=== PATIENT | male | born 2000 | race Caucasian/White ===

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

== ENCOUNTER 2025-01-20 09:24 | Emergency (ER) | payer BC, OTHER ==
[2025-01-20 09:31] VITALS: RESP 18; TEMP 97.9
--- NOTE | 2025-01-20 11:10 | ED ---
General Adult HPI - General Chief complaint: Animal Bite Stated complaint: Dog Bite R Hand Time Seen by Provider: 01/20/25 10:22 Source: patient, RN notes reviewed Mode of arrival: ambulatory Limitations: no limitations - History of Present Illness Initial comments: 24-year-old male presents to the emergency department for evaluation of right hand injury from a dog bite. Patient states that this occurred on . Patient notes that it was a neighborhood dog that his grandmother's house. They did contact the police and animal control. The dog is not registered at the house. Animal control is supposed to go to the house on Wednesday and attempt to quarantine the dog. The patient had a tetanus vaccine last year. - Related Data Previous Rx's Medication Instructions Recorded Amoxicillin 500 mg PO Q8H #30 capsule 11/04/15 predniSONE [Deltasone] 20 mg PO BID #10 tab 11/04/15 Amoxic-Pot Clav 875-125Mg 1 tab PO Q12HR 10 Days #20 tab 01/20/25 [Augmentin 875-125] Allergies Allergy/AdvReac Type Severity Reaction Status Date / Time No Known Allergies Allergy Verified 01/20/25 09:31 Review of Systems ROS Statement: Those systems with pertinent positive or pertinent negative responses have been documented in the HPI. ROS Other: All systems not noted in ROS Statement are negative. Past Medical History Past Medical History: No Reported History History of Any Multi-Drug Resistant Organisms: None Reported Past Surgical History: No Surgical Hx Reported Past Psychological History: No Psychological Hx Reported Smoking Status: Never smoker Past Alcohol Use History: None Reported, Occasional Past Drug Use History: Marijuana General Exam Limitations: no limitations General appearance: alert, in no apparent distress Head exam: Present: atraumatic, normocephalic, normal inspection Eye exam: Present: normal appearance, PERRL, EOMI. Absent: scleral icterus, conjunctival injection, periorbital swelling ENT exam: Present: normal exam, mucous membranes moist Respiratory exam: Present: normal lung sounds bilaterally. Absent: respiratory distress, wheezes, rales, rhonchi, stridor Cardiovascular Exam: Present: regular rate, normal rhythm, normal heart sounds. Absent: systolic murmur, diastolic murmur, rubs, gallop, clicks Extremities exam: Present: full ROM, normal capillary refill, other (Erythema on the palmar aspect of the hand). Absent: tenderness, pedal edema, joint swelling, calf tenderness Neurological exam: Present: alert, oriented X3 Psychiatric exam: Present: normal affect, normal mood Skin exam: Present: warm, dry, intact, other (Puncture wound presentPuncture wounds to the right hand anterior posterior, rash of the third digit and the second digit of the right hand, rash to the left hand). Absent: normal color Course Vital Signs 01/20/25 01/20/25 09:28 14:30 Temperature 97.9 F Pulse Rate 86 80 Respiratory 18 18 Rate Blood Pressure 151/80 128/74 O2 Sat by Pulse 99 99 Oximetry Medical Decision Making - Medical Decision Making Was pt. sent in by a medical professional or institution (, PA, [employer], urgent care, hospital, or shelter...) When possible be specific @ -No Did you speak to anyone other than the patient for history (EMS, parent, family, police, friend...)? What history was obtained from this source @ -No Did you review nursing and triage notes (agree or disagree)? Why? @ -I reviewed and agree with nursing and triage notes Were old charts reviewed (outside hosp., previous admission, EMS record, old EKG, old radiological studies, urgent care reports/EKG's, shelter records)? Report findings @ -No old charts were reviewed Differential Diagnosis (chest pain, altered mental status, abdominal pain women, abdominal pain men, vaginal bleeding, weakness, fever, dyspnea, syncope, headache, dizziness, GI bleed, back pain, seizure, CVA, palpatations, mental health, musculoskeletal)? @ -Differential Musculoskeletal Muscular strain, contusion, ligament sprain, fracture, arthritis, septic arthritis, bursitis, cellulitis, muscle spasm, nerve compression, DVT, arterial occlusion, herpes zoster, electrolyte abnormality, tumor.... This is not meant to be in all inclusive list EKG interpreted by me (3pts min.). @ -None X-rays interpreted by me (1pt min.). @ -None done CT interpreted by me (1pt min.). @ -None done U/S interpreted by me (1pt. min.). @ -None done What testing was considered but not performed or refused? (CT, X-rays, U/S, labs)? Why? @ -None What meds were considered but not given or refused? Why? @ -None Did you discuss the management of the patient with other professionals (professionals i.e. , PA, [employer], lab, RT, psych nurse, rn social work, glass cutter helper, teacher, life science technical officer, high risk case manager)? Give summary @ -No Was smoking cessation discussed for >3mins.? @ -No Was critical care preformed (if so, how long)? @ -No Were there social determinants of health that impacted care today? How? (Homelessness, low income, unemployed, alcoholism, drug addiction, transportation, low edu. Level, literacy, decrease access to med. care, detention, rehab)? @ -No Was there de-escalation of care discussed even if they declined (Discuss DNR or withdrawal of care, Hospice)? DNR status @ -No What co-morbidities impacted this encounter? (DM, HTN, Smoking, COPD, CAD, Cancer, CVA, ARF, Chemo, Hep., AIDS, mental health diagnosis, sleep apnea, morbid obesity)? @ -None Was patient admitted / discharged? Hospital course, mention meds given and route, prescriptions, significant lab abnormalities, going to OR and other pertinent info. @ -Discharge. Patient presented to emergency department for evaluation of puncture wounds to the hand from a dog bite. This occurred a few days ago.X- rays obtained revealing no acute abnormality. Puncture wounds are present to the hand which appear to be healing. I offered the patient rabies vaccine but discussed low likelihood. Patient would prefer to get the vaccines. He was given the initial Ig and vaccination. He is written a prescription for the remaining shots. He also was started on Augmentin and prescription was sent to the patient's pharmacy. He is understanding agreeable discharge plan. Patient stable at time of discharge. Case discussed with Dr. Rowley Undiagnosed new problem with uncertain prognosis? @ -No Drug Therapy requiring intensive monitoring for toxicity (Heparin, Nitro, Insulin, Cardizem)? @ -No Were any procedures done? @ -No Diagnosis/symptom? @ -Dog bite Acute, or Chronic, or Acute on Chronic? @ -Acute Uncomplicated (without systemic symptoms) or Complicated (systemic symptoms)? @ -Uncomplicated Side effects of treatment? @ -No Exacerbation, Progression, or Severe Exacerbation? @ -No Poses a threat to life or bodily function? How? (Chest pain, [place], [place], pneumonia, PE, COPD, DKA, ARF, appy, cholecystitis, CVA, Diverticulitis, Homicidal, Suicidal, threat to staff... and all critical care pts) @ -No Disposition Clinical Impression: Dog bite Disposition: HOME SELF-CARE Condition: Stable Instructions (If sedation given, give patient instructions): Animal Bite (ED) Additional Instructions: Please follow up with your primary care provider. Return to the emergency department for new or worsening symptoms. Prescriptions: Amoxic-Pot Clav 875-125Mg [Augmentin 875-125] 1 tab PO Q12HR 10 Days #20 tab Is patient prescribed a controlled substance at d/c from ED?: No Referrals: None,Stated [Primary Care Provider] - 1-2 days
--- NOTE | 2025-01-20 11:44 | XR ---
Right hand HISTORY: Pain following dog bite. COMPARISON: None TECHNIQUE: 3 views of the right hand were obtained. Findings: There is no fracture, dislocation, intraosseous or intra-articular abnormality. The soft tissues are normal. IMPRESSION: No significant abnormality seen. [facility], , 01/20/2025 11:42 AM
[2025-01-20] MEDS: RABIES IMM GLOB 300 UNIT/2 ML VIAL IM ONE (12:43)
[2025-01-20] MEDS: RABIES VACCINE (PCEC) 2.5 UNIT KIT IM ONE (12:45)
[2025-01-20] MEDS: AMOXIC-POT CLAV 875-125MG 1 EACH TAB PO STA (14:27)
[2025-01-20 14:30] VITALS: BP 128/74; PULSE 80
== END 2025-01-20 14:30 | disposition home or self-care (01) ==
LOC: EC 09:24
DX: S61.431A Puncture wound without foreign body of right hand, initial encounter (principal); W54.0XXA Bitten by dog, initial encounter
CPT/HCPCS: 90377; 90471; 90675; 96372; 99283

== ENCOUNTER 2025-03-02 07:53 | Emergency (ER) | payer BC ==
[2025-03-02] MEDS: LIDOCAINE 1% INJ 10MG/ML (20 ML MDV) SQ ONE (08:27)
--- NOTE | 2025-03-02 09:48 | ED ---
Skin/Abscess/FB HPI - General Chief complaint: Skin/Abscess/Foreign Body Stated complaint: Bump in L armpit Time Seen by Provider: 03/02/25 08:17 Source: patient Mode of arrival: ambulatory Limitations: no limitations - History of Present Illness Initial comments: 25-year-old male presents to the emergency department with a bump in his left armpit. Patient noticed it a few days ago and it has been getting increasingly larger in size. He had 1 in his right armpit which he states ruptured on its own. He has now developed a 1 in his left armpit. It is not currently draining at this time and so therefore very painful. He denies history of MRSA. No history of intravenous drug use. Denies fevers. No other alleviating, precipitating modifying factors - Related Data Previous Rx's Medication Instructions Recorded Amoxicillin 500 mg PO Q8H #30 capsule 11/04/15 predniSONE [Deltasone] 20 mg PO BID #10 tab 11/04/15 Amoxic-Pot Clav 875-125Mg 1 tab PO Q12HR 10 Days #20 tab 01/20/25 [Augmentin 875-125] Bacitracin Zinc Oint 1 applic TOPICAL BID #28 gm 03/02/25 Cephalexin [Keflex] 500 mg PO Q6HR #28 cap 03/02/25 Sulfamethox-Tmp 800-160Mg [Bactrim 2 tab PO BID #28 tab 03/02/25 DS 800-160 mg] Allergies Allergy/AdvReac Type Severity Reaction Status Date / Time No Known Allergies Allergy Verified 03/02/25 08:11 Review of Systems ROS Statement: Those systems with pertinent positive or pertinent negative responses have been documented in the HPI. ROS Other: All systems not noted in ROS Statement are negative. 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 Not ruptured at this time. Surrounding cellulitis) Course Vital Signs 03/02/25 03/02/25 08:07 09:56 Temperature 97.6 F 97.8 F Pulse Rate 74 72 Respiratory 20 18 Rate Blood Pressure 113/72 115/76 O2 Sat by Pulse 99 99 Oximetry Procedures - Incision & Drainage Consent Obtained: verbal consent Site: other (Axilla) Size (cm): 4 Anesthetic Used: lidocaine 1%, without epi Amount (mLs): 6 I&D Cleaning Method: Chloroprep Sterile Field Used?: Yes Scalpel Used: #11 Ultrasound used: No Needle Aspiration Performed?: No Irrigation Performed?: No I&D Drainage Obtained: Pus Loculation Noted: probing needed to break Insertion of drain: No Culture Obtained?: Yes Patient Tolerated Procedure: well Medical Decision Making - Medical Decision Making Was pt. sent in by a medical professional or institution (, [facility], VENDER, urgent care, hospital, or long-term...) When possible be specific @ -No Did you speak to anyone other than the patient for history (EMS, parent, family, police, friend...)? What history was obtained from this source @ -No Did you review nursing and triage notes (agree or disagree)? Why? @ -I reviewed and agree with nursing and triage notes Were old charts reviewed (outside hosp., previous admission, EMS record, old EKG, old radiological studies, urgent care reports/EKG's, long-term records)? Report findings @ -No old charts were reviewed Differential Diagnosis (chest pain, altered mental status, abdominal pain women, abdominal pain men, vaginal bleeding, weakness, fever, dyspnea, syncope, headache, dizziness, GI bleed, back pain, seizure, CVA, palpatations, mental health, musculoskeletal)? @ -MRSA, abscess, cellulitis, hidradenitis EKG interpreted by me (3pts min.). @ -Not done X-rays interpreted by me (1pt min.). @ -None done CT interpreted by me (1pt min.). @ -None done U/S interpreted by me (1pt. min.). @ -None done What testing was considered but not performed or refused? (CT, X-rays, U/S, labs)? Why? @ -None What meds were considered but not given or refused? Why? @ -None Did you discuss the management of the patient with other professionals (professionals i.e. Dr., PA, VENDER, lab, RT, psych nurse, social work supervisor, flue cleaner, teacher, correction officer reformatory, outpatient case manager)? Give summary @ -No Was smoking cessation discussed for >3mins.? @ -No Was critical care preformed (if so, how long)? @ -No Were there social determinants of health that impacted care today? How? (Homelessness, low income, unemployed, alcoholism, drug addiction, transportation, low edu. Level, literacy, decrease access to med. care, [facility], rehab)? @ -No Was there de-escalation of care discussed even if they declined (Discuss DNR or withdrawal of care, Hospice)? DNR status @ -No What co-morbidities impacted this encounter? (DM, HTN, Smoking, COPD, CAD, Cancer, CVA, ARF, Chemo, Hep., AIDS, mental health diagnosis, sleep apnea, morbid obesity)? @ -None Was patient admitted / discharged? Hospital course, mention meds given and route, prescriptions, significant lab abnormalities, going to OR and other pertinent info. @ -Upon arrival patient seen and evaluated in bed 30. Thorough history and physical exam was performed. Patient does give verbal consent to incision and drainage. Procedures performed the patient has immediate improvement in his symptoms. He will be placed on Keflex and Bactrim. Instructed to take the medications as they are instructed. Follow-up with his doctor for ensured healing and return for any new or worsening symptoms. Patient agreeable to plan and was discharged in stable condition Undiagnosed new problem with uncertain prognosis? @ -No Drug Therapy requiring intensive monitoring for toxicity (Heparin, Nitro, Insulin, Cardizem)? @ -No Were any procedures done? @ -Incision and drainage left armpit abscess Diagnosis/symptom? @ -Left armpit abscess Acute, or Chronic, or Acute on Chronic? @ -Acute Uncomplicated (without systemic symptoms) or Complicated (systemic symptoms)? @ -Uncomplicated Side effects of treatment? @ -No Exacerbation, Progression, or Severe Exacerbation? @ -No Poses a threat to life or bodily function? How? (Chest pain, [place], [place], pneumonia, PE, COPD, DKA, ARF, appy, cholecystitis, CVA, Diverticulitis, Homicidal, Suicidal, threat to staff... and all critical care pts) @ -No Disposition Clinical Impression: Abscess Disposition: HOME SELF-CARE Condition: Stable Instructions (If sedation given, give patient instructions): Abscess (ED) Additional Instructions: Continue to express the area in the shower after running it under hot water. Take the antibiotics until completion. Follow up with your doctor to ensure clearance. If these keep happening, you might want to see a field hockey coach. Prescriptions: Bacitracin Zinc Oint 1 applic TOPICAL BID #28 gm Sulfamethox-Tmp 800-160Mg [Bactrim DS 800-160 mg] 2 tab PO BID #28 tab Cephalexin [Keflex] 500 mg PO Q6HR #28 cap Is patient prescribed a controlled substance at d/c from ED?: No Referrals: [facility] [NON-STAFF] - 1-2 days ( Contact a primary care office to become established with a provider. ) [facility] [NON-STAFF] - 1-2 days None,Stated [Primary Care Provider] - 1-2 days Forms: Area PCPs Time of Disposition: 09:49
[2025-03-02 09:58] VITALS: BP 115/76; PULSE 72; RESP 18; TEMP 97.8
== END 2025-03-02 09:57 | disposition home or self-care (01) ==
LOC: EC 07:53
DX: L02.412 Cutaneous abscess of left axilla (principal)
CPT/HCPCS: 87070; 87205; 87077; 87186; 99282; 10060; J2003